=== PATIENT | female | born 1970 | race Caucasian/White ===

== ENCOUNTER 2018-07-21 07:19 | Day surgery (SDC) | payer OTHER ==
[~2018-07-21 07:19] MED LIST: SOD CHLORIDE 0.9% 1,000 ML IV
[2018-07-21] MEDS: TROPICAMIDE 1% 15 ML OPH OPER (07:58)
[2018-07-21] MEDS: MOXIFLOXACIN 0.5% 3 ML OPH OPER (07:58)
[2018-07-21] MEDS: DICLOFENAC 0.1% 2.5 ML OPH OPER (07:58)
[2018-07-21] MEDS: CYCLOPENTOLATE/PHENYLEPH 2 ML OPH OPER (07:58)
[2018-07-21] MEDS ORDERED: METOCLOPRAMIDE 10 MG INJ IV (09:30)
[2018-07-21] MEDS ORDERED: FENTAnyl 50 MCG/ML VIAL IV ×3 (09:30)
[2018-07-21] MEDS ORDERED: OXYCODONE/ACETAMINOPHEN (5/325) TAB PO ×2 (09:30)
[2018-07-21] MEDS ORDERED: LABETALOL HCL 20MG INJ IV (09:30)
[2018-07-21] MEDS ORDERED: MEPERIDINE 25 MG INJ IV (09:30)
[2018-07-21] MEDS ORDERED: EPHEDrine SULFATE 50 MG/5 ML SYG IV (09:30)
[2018-07-21] MEDS ORDERED: hydrALAzine 20 MG INJ IV (09:30)
[2018-07-21] MEDS ORDERED: DIPHENHYDRAMINE 50 MG INJ IV (09:30)
[2018-07-21] MEDS ORDERED: MIDAZOLAM 1 MG/ML 2 ML INJ IV (09:30)
[2018-07-21] MEDS ORDERED: ONDANSETRON 4 MG INJ IV (09:30)
[2018-07-21] MEDS ORDERED: PROPOFOL 20 ML (09:34)
[2018-07-21] MEDS: TETRACAINE 0.5% 4 ML OPH (10:06)
[2018-07-21] MEDS: NA HYALURONATE/CHONDROITIN 0.5 ML SYG (10:06)
[2018-07-21] MEDS: CARBACHOL 0.01% 1.5 ML OPH INJ (10:06)
[2018-07-21] MEDS: LIDOCAINE 4% (MPF) 5 ML INJ (10:06)
== END 2018-07-21 11:34 | disposition home or self-care (01) ==
LOC: SDS 07:19
DX: H25.042 Posterior subcapsular polar age-related cataract, left eye (principal); I10 Essential (primary) hypertension; E11.9 Type 2 diabetes mellitus without complications; E78.5 Hyperlipidemia, unspecified
CPT/HCPCS: 66984; 82962

== ENCOUNTER 2018-11-10 06:38 | Day surgery (SDC) | payer OTHER ==
[2018-11-10] MEDS ORDERED: DICLOFENAC 0.1% 2.5 ML OPH (07:33)
[2018-11-10] MEDS ORDERED: CYCLOPENTOLATE/PHENYLEPH 2 ML OPH (07:33)
[2018-11-10] MEDS ORDERED: TROPICAMIDE 1% 15 ML OPH (07:35)
[2018-11-10] MEDS ORDERED: MOXIFLOXACIN 0.5% 3 ML OPH (07:35)
[2018-11-10] MEDS: CYCLOPENTOLATE/PHENYLEPH 2 ML OPH OPER (07:44)
[2018-11-10] MEDS: DICLOFENAC 0.1% 2.5 ML OPH OPER (07:45)
[2018-11-10] MEDS: MOXIFLOXACIN 0.5% 3 ML OPH OPER (07:45)
[2018-11-10] MEDS: TROPICAMIDE 1% 15 ML OPH OPER (07:45)
[2018-11-10] MEDS: INSULIN REGULAR, HUMAN 100 UNIT/1 ML 3ML VIAL SC (09:02)
[2018-11-10] MEDS ORDERED: MEPERIDINE 25 MG INJ IV (11:00)
[2018-11-10] MEDS ORDERED: IPRATROPIUM (NEB) 0.5 MG/2.5 ML AMP HHN (11:00)
[2018-11-10] MEDS ORDERED: MIDAZOLAM 1 MG/ML 2 ML INJ IV (11:00)
[2018-11-10] MEDS ORDERED: DIPHENHYDRAMINE 50 MG INJ IV (11:00)
[2018-11-10] MEDS ORDERED: ALBUTEROL 0.083% (NEB) 2.5 MG/3 ML AMP HHN (11:00)
[2018-11-10] MEDS ORDERED: HYDROmorphONE 1 MG/5 ML IV SYRINGE IV ×3 (11:00)
[2018-11-10] MEDS ORDERED: LABETALOL HCL 20MG INJ IV (11:00)
[2018-11-10] MEDS ORDERED: OXYCODONE/ACETAMINOPHEN (5/325) TAB PO ×2 (11:00)
[2018-11-10] MEDS ORDERED: ONDANSETRON 4 MG INJ IV (11:00)
[2018-11-10] MEDS ORDERED: EPHEDrine 25 MG/5 ML SYG IV (11:00)
[2018-11-10] MEDS ORDERED: FENTAnyl 50 MCG/ML VIAL IV ×3 (11:00)
[2018-11-10] MEDS ORDERED: hydrALAzine 20 MG INJ IV (11:00)
[2018-11-10] MEDS ORDERED: TRIMETHOBENZAMIDE 100 MG/ML VIAL IM (11:00)
[2018-11-10] MEDS ORDERED: FENTAnyl 50 MCG/ML VIAL (11:15)
[2018-11-10] MEDS: LIDOCAINE 4% (MPF) 5 ML INJ INJ (11:26)
[2018-11-10] MEDS: TETRACAINE 0.5% 4 ML OPH RIGHT EYE (11:26)
[2018-11-10] MEDS: NA HYALURONATE/CHONDROITIN 0.5 ML SYG RIGHT EYE (11:27)
[2018-11-10] MEDS: CARBACHOL 0.01% 1.5 ML OPH INJ RIGHT EYE (11:27)
[2018-11-10] MEDS ORDERED: PROPOFOL 20 ML (11:39)
[2018-11-10] MEDS ORDERED: LIDOCAINE 100 MG SYRINGE (11:39)
== END 2018-11-10 13:05 | disposition home or self-care (01) ==
LOC: SDS 06:38
DX: H25.041 Posterior subcapsular polar age-related cataract, right eye (principal); E11.9 Type 2 diabetes mellitus without complications; I10 Essential (primary) hypertension; E78.5 Hyperlipidemia, unspecified; J45.909 Unspecified asthma, uncomplicated; Z79.82 Long term (current) use of aspirin; Z79.84 Long term (current) use of oral hypoglycemic drugs; Z79.4 Long term (current) use of insulin
CPT/HCPCS: 66984; 82962